=== PATIENT | male | born 1940 | race Two or more races ===

== ENCOUNTER → 2019-08-20 | Outpatient (CLI) | payer MEDICARE, BC ==
[2019-08-20 15:18] LABS: HCT 37.7 % (39.0-53.0); HGB 11.8 gm/dL (13.0-17.5); Hypochromasia Moderate; MCH 28.1 pg (25.0-35.0); MCHC 31.3 g/dL (31.0-37.0); MCV 89.8 fL (80.0-100.0); Mean Platelet Volume 11.4; RDW 15.1 % (11.5-15.5); WBC 4.9 k/uL (3.8-10.6)
[2019-08-20 15:40] LABS: Platelet Count 43 k/uL (150-450)
[2019-08-20 21:08] LABS: African American GFR (CKD) 104.8 (60.0-200.0); Anion Gap 9.1 mmol/L (4.00-12.00); Carbon Dioxide 24.9 mmol/L (21.6-31.8); Non-African American GFR(CKD) 90.4 (60.0-200.0); Potassium 3.7 mmol/L (3.5-5.5)
== END | disposition home or self-care (01) ==
LOC: LABWHC1 14:06
PROVIDERS: ATTEND Internal Medicine Cardiovascular Disease
DX: I50.9 Heart failure, unspecified (principal)
CPT/HCPCS: 36415; 80051; 82565; 83880; 84443; 84520; 85027